=== PATIENT | female | born 1985 | race African-American/Black ===

== ENCOUNTER 2022-06-03 20:12 | Emergency (ER) | payer OTHER, MEDICAID ==
[~2022-06-03] VITALS: Ht 165.1 cm; Wt 111.8 kg
[2022-06-03 23:40] VITALS: BP 133/83
== END 2022-06-04 | disposition home or self-care (01) ==
LOC: ER 20:16
DX: S30.1XXA Contusion of abdominal wall, initial encounter (principal); O26.891 Other specified pregnancy related conditions, first trimester; Z3A.09 9 weeks gestation of pregnancy; V43.52XA Car driver injured in collision with other type car in traffic accident, initial encounter; Y93.89 Activity, other specified; Y92.410 Unspecified street and highway as the place of occurrence of the external cause; Y99.8 Other external cause status
CPT/HCPCS: 76801